=== PATIENT | male | born 1950 | race Caucasian/White ===

== ENCOUNTER 2021-08-31 17:28 | Emergency (ER) | payer OTHER ==
[2021-08-31] MEDS ORDERED: ACETAMINOPHEN 500 MG TAB ONE (18:55)
[2021-08-31] MEDS ORDERED: NA CHLORIDE 0.9% 1,000 ML ONE (18:56)
[2021-08-31 18:59] LABS: Absolute Lymphocytes (CBC) 1.5 K/uL (0.7-4.9); Basophils % 0.8 % (0-1.3); Hematocrit 48.7 % (39.6-49.0); Lymphocytes % 15.1 % (15.3-44.8); MPV 7.8 fL (7.6-11.3); RBC Red Blood Cell Count 5.56 M/uL (4.33-5.43)
--- NOTE | 2021-08-31 19:22 | RAD REPORT ---
EXAM DESCRIPTION: RAD - Chest Single View - 08/31/2021 6:38 pm CLINICAL HISTORY: COUGH COMPARISON: No comparisons FINDINGS: Lines: None. Lungs: No evidence of edema or pneumonia. Pleural: No significant pleural effusions or pneumothorax. Cardiac: The heart size is within normal limits. Bones: No acute fractures. Other: IMPRESSION: No acute cardiopulmonary disease.
[2021-08-31 19:56] LABS: Albumin 4.2 g/dL (3.4-5.0); Bilirubin Direct 0.3 mg/dL (0-0.2); Bilirubin Total 0.9 mg/dL (0.2-1.0); C-Reactive Protein 11.5 mg/L (<3.00); Potassium 4.4 mmol/L (3.5-5.1); Protein, Total 7.8 g/dL (6.4-8.2)
--- NOTE | 2021-08-31 21:19 | EDPHYS ---
Physician Documentation [facility] Name: Howrad Teresa Age: 71 yrs Sex: Male : 1950 Arrival Date: 08/31/2021 Time: 17:33 Bed 4 Private MD: ED Physician Kobe Salinas HPI: 08/31 18:09 This 71 yrs old Male presents to ER via Ambulatory with complaints of Cough, pm1 General Weakness, Body Aches. 18:09 The patient or guardian reports cough, with no sputum, flu symptoms, Body aches. Onset: pm1 The symptoms/episode began/occurred 3 day(s) ago. Severity of symptoms: in the emergency department the symptoms are unchanged. Modifying factors: The symptoms are alleviated by nothing, the symptoms are aggravated by nothing. Associated signs and symptoms: Pertinent negatives: chest pain, diarrhea, nausea, sore throat, vomiting, Shortness of breath. The patient has not experienced similar symptoms in the past. The patient has not recently seen a physician. Patient presenting to the ER with who has similar presentation of cough and body aches. Patient with vaccinations April and May. Historical: - Allergies: 17:40 No Known Allergies; hb - PMHx: 17:40 DM2; hb - Immunization history:: Client reports receiving the 2nd dose of the Covid vaccine. - Social history:: Smoking status: Patient denies any tobacco usage or history of. ROS: 18:09 Cardiovascular: Negative for chest pain, palpitations, and edema. pm1 18:09 Abdomen/GI: Negative for abdominal pain, nausea, vomiting, diarrhea, and constipation, Back: Negative for injury and pain, MS/Extremity: Negative for injury and deformity, Skin: Negative for injury, rash, and discoloration. 18:09 Constitutional: Positive for body aches, Negative for poor PO intake. 18:09 Respiratory: Positive for cough, Negative for shortness of breath, sputum production. 18:09 Neuro: Positive for Generalized weakness, Negative for numbness, tingling. 18:09 All other systems are negative. Exam: 18:09 Constitutional: This is a well developed, well nourished patient who is awake, alert, pm1 and in no acute distress. Head/Face: Normocephalic, atraumatic. 18:09 Skin: Warm, dry with normal turgor. Normal color with no rashes, no lesions, and no evidence of cellulitis. MS/ Extremity: Pulses equal, no cyanosis. Neurovascular intact. Full, normal range of motion. 18:09 ENT: Exam is negative for acute changes, Mouth: no acute changes, Lips: normal, moist, Oral mucosa: normal, pink and intact, moist. 18:09 Cardiovascular: Exam negative for acute changes, Rate: tachycardic, actual rate is 104 bpm, Rhythm: regular, Pulses: no pulse deficits are appreciated, Heart sounds: normal, normal S1and S2. 18:09 Respiratory: Exam negative for acute changes, respiratory distress, shortness of breath, Breath sounds: are clear throughout. 18:09 Abdomen/GI: Exam negative for acute changes, Inspection: abdomen appears normal, Palpation: abdomen is soft and non-tender, in all quadrants. 18:09 Neuro: Exam negative for acute changes, Orientation: is normal, Mentation: is normal, Motor: is normal, moves all fours. Vital Signs: 17:38 BP 146 / 93; Pulse 104; Resp 24; Temp 99.9(O); Pulse Ox 96% on R/A; Weight 83.46 kg; hb Height 5 ft. 9 in. (175.26 cm); Pain 8/10; 19:15 BP 129 / 80; Pulse 85; Resp 18; Temp 98.1; Pulse Ox 95% ; Pain 0/10; dc2 21:30 BP 118 / 74; Pulse 68; Resp 17; Temp 97.1; Pulse Ox 99% ; Pain 5/10; dc2 17:38 Body Mass Index 27.17 (83.46 kg, 175.26 cm) hb MDM: 17:45 Patient medically screened. pm1 20:53 Data reviewed: vital signs. Data interpreted: Pulse oximetry: on room air is 95 %. pm1 Interpretation: normal. Counseling: I had a detailed discussion with the patient and/or guardian regarding: the historical points, exam findings, and any diagnostic results supporting the discharge/admit diagnosis, lab results, radiology results, the need for outpatient follow up, to return to the emergency department if symptoms worsen or persist or if there are any questions or concerns that arise at home. 21:07 ED course: Offered monoclonal antibody therapy. Patient is currently discussing it with pm1 his spouse. 21:18 ED course: Patient refused monoclonal antibodies. pm1 08/31 18:05 Order name: Flu pm1 08/31 18:05 Order name: COVID-19 : Document "Date of Symptom Onset" if Symptomatic. pm1 08/31 18:05 Order name: BMP; Complete Time: 22:30 pm1 08/31 18:05 Order name: C-Reactive Protein; Complete Time: 22:30 pm1 08/31 18:05 Order name: CBC with Diff; Complete Time: 19:40 pm1 08/31 18:05 Order name: Ferritin; Complete Time: 22:30 pm1 08/31 18:05 Order name: LFT's; Complete Time: 22:30 pm1 08/31 18:05 Order name: Lipase; Complete Time: 22:30 pm1 08/31 18:05 Order name: Strep; Complete Time: 20:02 pm1 08/31 18:05 Order name: CXR XRAY; Complete Time: 19:40 pm1 08/31 18:06 Order name: Influenza Screen (A ; Complete Time: 20:52 EDMS 08/31 20:03 Order name: Throat Culture EDMS 08/31 20:43 Order name: SARS-COV-2 RT PCR; Complete Time: 20:44 EDMS 08/31 18:05 Order name: Droplet/Contact Precautions; Complete Time: 18:24 pm1 08/31 18:05 Order name: EKG - Nurse/Tech; Complete Time: 19:03 pm1 08/31 18:05 Order name: IV Start; Complete Time: 18:24 pm1 08/31 18:05 Order name: Labs collected and sent; Complete Time: 18:24 pm1 Administered Medications: 18:33 Drug: NS 0.9% 1000 ml Route: IV; Rate: 1000 ml; Site: right forearm; ap3 19:15 Follow up: IV Status: Completed infusion; IV Intake: 1000ml dc2 18:33 Drug: Tylenol 1000 mg Route: PO; ap3 19:15 Follow up: Response: Pain is decreased dc2 Disposition: 09/01 07:02 Co-signature as Attending Physician, Kobe Salinas MD I agree with the assessment and rn plan of care. Attestation: The patient's history, exam findings, diagnostics, and a summary of any interventions or procedures was reviewed in detail with Darrian Marinas MOLYBDENUM STEAMER OPERATOR. Disposition Summary: 08/31/21 21:19 Discharge Ordered Location: Home pm1 Problem: new pm1 Symptoms: have improved pm1 Condition: Stable pm1 Diagnosis - Coronavirus infection, unspecified pm1 Followup: pm1 - With: Emergency Department - When: As needed - Reason: Worsening of condition Followup: pm1 - With: Private Physician - When: 2 - 3 days - Reason: Recheck today's complaints, Continuance of care, Re-evaluation by your physician Discharge Instructions: - Discharge Summary Sheet pm1 - COVID-19 pm1 - COVID-19 Frequently Asked Questions pm1 - 10 Things You Can Do to Manage Your COVID-19 Symptoms at Home - [facility] pm1 - COVID-19: Quarantine vs. Isolation - [facility] pm1 Forms: - Medication Reconciliation Form pm1 - Thank You Letter pm1 - Antibiotic Education pm1 - Prescription Opioid Use pm1 Signatures: Dispatcher [employer] EDMS Kobe Salinas MD MD rn Marinas, Patrick, NP MOLYBDENUM STEAMER OPERATOR pm1 Zainab Olmos RN RN Vickie Brian RN RN ap3 FrancoiseSosa RN dc2 Corrections: (The following items were deleted from the chart) 08/31 19:35 18:06 Influenza Screen (A ordered. EDMS EDMS 19:35 18:06 CORONAVIRUS ordered. EDMS EDMS
--- NOTE | 2021-08-31 21:19 | ER ---
Nurse's Notes [facility] Name: Howard Teresa Age: 71 yrs Sex: Male : 1950 Arrival Date: 08/31/2021 Time: 17:33 Bed 4 Private MD: Diagnosis: Coronavirus infection, unspecified Presentation: 08/31 17:38 Chief complaint: Body aches, extreme fatigue, sore throat, persistent dry cough, and hb headache x 3 days. Coronavirus screen: Client presents with at least one sign or symptom that may indicate coronavirus-19. Standard/surgical mask placed on the client. Provider contacted for isolation considerations. Ebola Screen: No symptoms or risks identified at this time. Initial Sepsis Screen: Does the patient meet any 2 criteria? No. Patient's initial sepsis screen is negative. Does the patient have a suspected source of infection? No. Patient's initial sepsis screen is negative. Risk Assessment: Do you want to hurt yourself or someone else? Patient reports no desire to harm self or others. Onset of symptoms was August 29, 2021. 17:38 Method Of Arrival: Ambulatory 17:38 Acuity: ANNIE 3 hb Historical: - Allergies: 17:40 No Known Allergies; hb - PMHx: 17:40 DM2; hb - Immunization history:: Client reports receiving the 2nd dose of the Covid vaccine. - Social history:: Smoking status: Patient denies any tobacco usage or history of. Screenin:24 Abuse screen: Denies threats or abuse. Nutritional screening: No deficits noted. ap3 Tuberculosis screening: No symptoms or risk factors identified. Fall Risk None identified. Assessment: 18:22 General: Appears in no apparent distress. Behavior is calm, cooperative. Pain: Denies ap3 pain. Neuro: Level of Consciousness is awake, alert, obeys commands, Oriented to person, place, time, situation, Moves all extremities. Speech is normal. Cardiovascular: Capillary refill < 3 seconds Patient's skin is warm and dry. Respiratory: Airway is patent Respiratory effort is even, unlabored, Breath sounds are diminished in left posterior lower lobe, right posterior middle lobe and right posterior lower lobe. GI: No signs and/or symptoms were reported involving the gastrointestinal system. : No signs and/or symptoms were reported regarding the genitourinary system. 19:15 Reassessment: Pt sitting in chair reading book, pt co " I'm sick" States has cough and dc2 chest pain when he coughs. VSS.IVF's completed at this time. IV flushed without difficulty. Call light within reach. Continue to monitor. 21:20 Reassessment: Pt co not eating all day and no one has fed him. Offer pt a sandwich and dc2 juice which he accepted. 21:30 Reassessment: Pt discharged but will remain in room with who is getting further dc2 treatment. VSS. In nad. Vital Signs: 17:38 BP 146 / 93; Pulse 104; Resp 24; Temp 99.9(O); Pulse Ox 96% on R/A; Weight 83.46 kg; hb Height 5 ft. 9 in. (175.26 cm); Pain 8/10; 19:15 BP 129 / 80; Pulse 85; Resp 18; Temp 98.1; Pulse Ox 95% ; Pain 0/10; dc2 21:30 BP 118 / 74; Pulse 68; Resp 17; Temp 97.1; Pulse Ox 99% ; Pain 5/10; dc2 17:38 Body Mass Index 27.17 (83.46 kg, 175.26 cm) hb ED Course: 17:33 Patient arrived in ED. mr 17:40 Triage completed. hb 17:40 Arm band placed on. hb 17:42 Mechelle Sheikh, MAX is Primary Nurse. tc5 17:43 Darrian Charles, KIM is PHCP. pm1 17:43 Kobe Salinas MD is Attending Physician. pm1 18:22 Vickie Brian, RN is Primary Nurse. ap3 18:24 Patient has correct armband on for positive identification. Call light in reach. Pulse ap3 ox on. NIBP on. Door closed. Noise minimized. 18:30 Inserted saline lock: 22 gauge in right forearm, using aseptic technique. Blood ll1 collected. 18:38 CXR XRAY In Process Unspecified. EDMS 19:04 EKG done, by ED staff, reviewed by Kobe Salinas MD. mh5 19:59 Primary Nurse role handed off by Vickie Brian, RN tt3 20:00 No apparent distress. dc2 20:00 Awaiting lab results. dc2 20:14 Francoise, Sosa, RN is Primary Nurse. dc2 21:00 Pulse ox on. NIBP on. Lights dimmed. dc2 21:20 No provider procedures requiring assistance completed. dc2 21:25 IV discontinued, intact, bleeding controlled, No redness/swelling at site. Pressure dc2 dressing applied. Administered Medications: 18:33 Drug: NS 0.9% 1000 ml Route: IV; Rate: 1000 ml; Site: right forearm; ap3 19:15 Follow up: IV Status: Completed infusion; IV Intake: 1000ml dc2 18:33 Drug: Tylenol 1000 mg Route: PO; ap3 19:15 Follow up: Response: Pain is decreased dc2 Intake: 19:15 IV: 1000ml; Total: 1000ml. dc2 Outcome: 21:19 Discharge ordered by . pm1 21:30 Admitted to dc2 21:30 Condition: stable 21:30 Discharge instructions given to patient, Instructed on discharge instructions. 23:07 Patient left the ED. dc2 Signatures: Dispatcher [employer] PRINCEOK JamesMariann mr CharlesDarrian, PRODUCTION CONTROL COORDINATOR PRODUCTION CONTROL COORDINATOR pm1 Zainab Olmos RN RN hb Martinez, Maria 5 Vickie Brian RN RN ap3 Juanjose Canales RN RN jon1 Bertram Thacker tt3 Sosa Owusu RN RN dc2 Mechelle Sheikh RN RN tc5
[2021-08-31 22:27] LABS: Ferritin 407.5 ng/mL (26-388)
[2021-08-31 23:22] VITALS: BP 118/74; TEMP 97.1; O2SAT 99
--- NOTE | 2021-09-01 18:10 | EKG ---
Test Date: 2021-08-31 Test Time: 19:13:00 Farm Mechanic Apprentice: RASHAD MEASUREMENT RESULTS: Intervals: Rate: 87 AL: 212 QRSD: 96 QT: 344 QTc: 413 [place]: P: 48 AL: 212 QRS: -24 T: 34 INTERPRETIVE STATEMENTS: Sinus rhythm with 1st degree AV block with premature atrial complexes Possible Left atrial enlargement Incomplete right bundle branch block Anteroseptal infarct, age undetermined Abnormal ECG No previous ECG available for comparison Electronically Signed On 09-01-21 18:05:58 CDT by Venu Meyer
== END 2021-08-31 23:07 | disposition home or self-care (01) ==
LOC: ER 17:28
DX: U07.1 COVID-19 (principal); E11.9 Type 2 diabetes mellitus without complications
CPT/HCPCS: 93005; 87070; 85025; 80048; 36415; 80076; 87081; 82728; 83690; 86140; 87804 ×2; 71045; 96360; 99285; U0003; J7030

== ENCOUNTER 2022-03-17 06:40 | Day surgery (SDC) | payer OTHER ==
[2022-03-17 07:22] LABS: Absolute Lymphocytes (CBC) 2.1 K/uL (0.7-4.9); Hematocrit 47.8 % (39.6-49.0); Lymphocytes % 24.6 % (15.3-44.8); MPV 7.8 fL (7.6-11.3); RBC Red Blood Cell Count 5.46 M/uL (4.33-5.43)
[2022-03-17] MEDS ORDERED: NA CHLORIDE 0.9% 1,000 ML ONE (07:35)
[2022-03-17 07:38] LABS: Potassium 4.5 mmol/L (3.5-5.1)
[2022-03-17] MEDS ORDERED: CEFAZOLIN SODIUM 1 GM/VIAL ONE (08:00)
[2022-03-17] MEDS ORDERED: NA CHLORIDE 0.9% 50 ML ONE (08:00)
--- NOTE | 2022-03-17 08:10 | RAD REPORT ---
EXAM DESCRIPTION: RAD - Chest Pa And Lat (2 Views) - 03/17/2022 7:52 am CLINICAL HISTORY: PREOP COMPARISON: Chest Single View dated 08/31/2021 FINDINGS: Lines: None. Lungs: No evidence of edema or pneumonia. Pleural: No significant pleural effusions or pneumothorax. Cardiac: The heart size is within normal limits. Bones: No acute fractures. Other: IMPRESSION: No acute cardiopulmonary disease.
[2022-03-17] MEDS ORDERED: FENTANYL CITR 100 MCG/2 ML ONE ×2 (08:19→08:42)
[2022-03-17] MEDS ORDERED: LIDOCAINE 1% MPF 5 ML VIAL ONE (08:19)
[2022-03-17] MEDS ORDERED: propofoL 200 MG/20 ML VIAL IV ONE (08:19)
[2022-03-17] MEDS ORDERED: dexAMETHasone 10 MG/ML VIAL ONE (08:33)
[2022-03-17] MEDS ORDERED: KETOROLAC 30 MG/ML INJ ONE (08:33)
[2022-03-17] MEDS ORDERED: ONDANSETRON 4 MG/2 ML VIAL ONE (08:35)
--- NOTE | 2022-03-17 09:03 | P.BOP ---
Preoperative diagnosis: incarcerated Right inguinal hernia with colon, incarc umbilical hernia Postoperative diagnosis: same Primary procedure: 1. Open repair of incarcerated Right inguinal hernia with mesh Secondary procedure: 2. Open repair of incarcerated umbilical hernia General Handling Supervisor: SONY GONZALEZ (DIRECTOR SALES AND TRADE MARKETING) Estimated blood loss: <10cc Specimen: sac x 2 Findings: viable bowel Anesthesia: General Complications: None Drain(s): Other (medium mesh) Transferred to: Recovery Room Condition: Good
[2022-03-17] MEDS ORDERED: DIPHENHYDRAMINE 50 MG/ML VIAL ONE (09:30)
[2022-03-17] MEDS: MORPHINE 4 MG/ML SYR ONE ×2 (10:00→10:05)
[2022-03-17] MEDS ORDERED: CODEINE 30MG/APAP 300MG TAB ONE (10:43)
[2022-03-17 11:18] VITALS: O2SAT 96
[2022-03-17 11:40] VITALS: BP 147/79; TEMP 97
--- NOTE | 2022-03-17 13:29 | DS ---
Date of Discharge: 03/17/2022 Diagnosis: Right inguinal hernia and umbilical hernia, incarcerated. Procedures: Open repair of incarcerated right inguinal hernia and open repair of incarcerated umbili noy hernia. Disposition: Home. Activity: As tolerated. No heavy lifting. Plan: Follow up in my office in 1 week. Call for appointment at [phone]. Keep area dry for 48 sean rs, then may shower. Cold compress to the right inguinal region for 24 hours. ABBY/TOREY Voice ID: [id number] Report ID: [id number]
--- NOTE | 2022-03-17 13:29 | OP ---
Date of Procedure: 03/17/2022 Surgeon: Alfred Barnes MD Preoperative Diagnosis: Incarcerated right inguinal hernia with colon and incarcerated umbilical her khushbu. Postoperative Diagnosis: Incarcerated right inguinal hernia with colon and incarcerated umbilical he rnia. Procedures: 1.Open repair of the right inguinal hernia with mesh. 2.Open repair of umbilical hernia with mesh. Anesthesia: General plus local. Complications: None. Finding: Viable bowel. Incarcerated bowel with no ischemia. Indication: This is the case of a male, who comes to us with the right inguinal hernia, umbilical he rnia. Right inguinal hernia shows incarcerated large bowel. Benefits, alternatives, and risks of re pair fully explained with the use of mesh, which include, but not limited to infection, bleeding, dam age to adjacent structures, anesthesia complication, recurrence, SD, and even . He also underst ands this may not relieve any symptoms. He might need more than one surgical intervention. He under stood, signed a consent. We also explained to him the pros and cons of mesh use. He was allowed to ask questions and they were answered to his satisfaction. Procedure In Detail: The patient was brought to the operating room, placed in supine position. Anes thesia was done without complication. Abdominal area was prepped and draped in the usual sterile fas hion. A time-out was called. Also, we started first with the inguinal region. Incision was carried down in the inguinal area after the area was prepped and draped in the usual sterile fashion after t siobhan-out. Incision carried down to Yancy fascia. The external oblique aponeurosis was encountered, opened in direction of its fibers to connect to the superficial inguinal ring. The ilioinguinal nerv e and iliohypogastric nerve were identified, protected behind external oblique aponeurosis. Melba placed around the spermatic cord. Hernia sac was identified, dissected from the spermatic cord alexy coffey sure we protect those areas. Opened the hernia sac, inspected the bowel, that region looks viable, reduced carefully. The hernia sac was twisted and then suture ligated twice to make sure the bowel is not injured. Area was irrigated. At that moment, I placed a mesh plug over the deep inguinal rin g, secured in place with VersaTack. Then, we put a mesh in the floor of the canal securing that to t he pubic tubercle, shelving edge of the inguinal ligament and transversalis fascia. That looks aroun d the spermatic cord without strangulation. At that moment, I proceeded to irrigate the area and the n proceeded to bring the ilioinguinal nerve, iliohypogastric nerve back into the inguinal canal, glenroy nstructed the superficial inguinal ring and closed the external oblique aponeurosis without including the nerve. The area was irrigated. Yancy fascia closed with 3-0 chromic and skin with wilton. S ponge count and instrument counts correct. The patient tolerated that procedure well. Then, we went to the umbilical region. The patient has a supraumbilical hernia. Incision was carried down to the supraumbilical region. Incision was carried down until we found the fascia, opened the hernia sac, not incarcerated omentum, carefully reduced back into the abdominal cavity after fully inspected and making sure it is viable. The fascial edges were cleaned. We noticed approximately that we were abl e to approximate that without a mesh without resistance, so we proceeded to close this in a figure-of -eight fashion multiple times with #1 Prolene. Area was irrigated. Subcutaneous tissue closed with 3-0 chromic and then the skin with wilton. Sponge count and instrument counts correct. The patient tolerated the procedure well. The patient was sent to recovery in stable condition. At the end of the case, testicles were in the scrotum. ABBY/TOREY Voice ID: [id number] Report ID: [id number]
--- NOTE | 2022-03-18 07:57 | EKG ---
Test Date: 2022-03-17 Test Time: 06:20:56 Saddle Lining Stitcher: KI MEASUREMENT RESULTS: Intervals: Rate: 70 CO: 220 QRSD: 102 QT: 388 QTc: 419 [place]: P: 46 CO: 220 QRS: -31 T: 51 INTERPRETIVE STATEMENTS: Sinus rhythm with 1st degree AV block Left axis deviation Low voltage QRS Incomplete right bundle branch block Cannot rule out Anterior infarct, age undetermined Abnormal ECG Compared to ECG 08/31/2021 19:13:00 Left-axis deviation now present Low QRS voltage now present Atrial premature complex(es) no longer present Myocardial infarct finding still present Electronically Signed On 03-18-22 07:55:33 CDT by Venu Meyer
== END 2022-03-17 11:35 | disposition home or self-care (01) ==
LOC: PRE 06:40
PROVIDERS: ATTEND Surgery
PROC: 0WUF0JZ Supplement Abdominal Wall with Synthetic Substitute, Open Approach (ICD-10-PCS; 2022-03-17)
PROC: 0YU50JZ Supplement Right Inguinal Region with Synthetic Substitute, Open Approach (ICD-10-PCS; principal; 2022-03-17 08:15)
DX: K40.30 Unilateral inguinal hernia, with obstruction, without gangrene, not specified as recurrent (principal); K42.0 Umbilical hernia with obstruction, without gangrene; Z20.822 Contact with and (suspected) exposure to COVID-19
CPT/HCPCS: 93005; 85025; 80048; 36415; 82947; 88302; 71046; 49507; 49587; U0003; J2704; J1200; J3010 ×2; J1100; J7030; J2405; J0690